=== PATIENT | female | born 1990 | race Caucasian/White ===

== ENCOUNTER 2017-11-03 09:19 | Emergency (ER) | payer OTHER ==
[~2017-11-03] VITALS: Ht 154.9 cm; Wt 82.0 kg
[2017-11-03 10:51] LABS: CLARITY URINE CLEAR (CLEAR); COLOR URINE YELLOW (YELLOW); KETONES URINE 3+ (NEGATIVE); LEUKOCYTE ESTERASE URINE 1+ (NEGATIVE); NITRITE URINE NEGATIVE (NEGATIVE); OCCULT BLOOD URINE NEGATIVE (NEGATIVE); PROTEIN URINE NEGATIVE (NEGATIVE); SPECIFIC GRAVITY URINE 1.024 (1.005-1.030)
[2017-11-03] MEDS ORDERED: MORPHINE SULFATE 4 MG/ML CPJ (NOT FOR IM USE) IV ONE (12:00)
[2017-11-03] MEDS ORDERED: ONDANSETRON HCL 4MG/2ML VIAL IV ONE (12:00)
[2017-11-03 12:27] LABS: HEMATOCRIT. 39.4 % (36.0-48.0); HEMOGLOBIN. 13.3 g/dL (12.0-16.0); MEAN CORPUSCULAR HEMOGLOBIN 29.4 pg (28.0-32.0); MEAN CORPUSCULAR VOLUME 86.9 fL (81.0-99.0); MEAN PLATELET VOLUME 10.6 fl (7.4-10.4); PLATELET 211 x1000/uL (130-400); RED BLOOD CELL COUNT 4.53 mill/uL (4.2-5.4); RED CELL DISTRIBUTION WIDTH 12.4 % (11.6-14.6)
[2017-11-03 12:32] LABS: CHLORIDE 104 mEq/L (98-107)
[2017-11-03 12:49] LABS: CARBON DIOXIDE 22 mEq/L (21-32)
[2017-11-03 12:56] LABS: B-HCG QUANTITATIVE 21090 mIU/mL (<3)
[2017-11-03 12:58] LABS: CLARITY URINE CLOUDY (CLEAR); COLOR URINE YELLOW (YELLOW); KETONES URINE 4+ (NEGATIVE); LEUKOCYTE ESTERASE URINE 2+ (NEGATIVE); NITRITE URINE NEGATIVE (NEGATIVE); OCCULT BLOOD URINE NEGATIVE (NEGATIVE); PROTEIN URINE NEGATIVE (NEGATIVE); SPECIFIC GRAVITY URINE 1.026 (1.005-1.030)
[2017-11-03 13:09] LABS: INR 1.1
[2017-11-03 13:17] LABS: PLATELET ESTIMATE NORMAL
[2017-11-03 13:54] LABS: *AMPHETAMINES SCREEN URINE NEGATIVE (NEGATIVE); *BARBITURATES SCREEN URINE NEGATIVE (NEGATIVE); *BENZODIAZEPINES SCREEN URINE NEGATIVE (NEGATIVE); *COCAINE SCREEN URINE NEGATIVE (NEGATIVE); METHADONE URINE SCREEN NEGATIVE (NEGATIVE); OPIATES URINE SCREEN NEGATIVE (NEGATIVE); PHENCYCLIDINE URINE SCREEN NEGATIVE (NEGATIVE)
[2017-11-03 13:57] LABS: CANNABINOID URINE SCREEN PRESUMTIVE POSITIVE (NEGATIVE)
[2017-11-03] MEDS ORDERED: RHO(D) IMMUNE GLOBULIN 300 MCG/SYR IM ONE (16:15)
[2017-11-03] MEDS ORDERED: CEFTRIAXONE 1 G PREMIX 50 ML IV ONE (16:15)
[2017-11-03 18:20] VITALS: BP 128/61
== END 2017-11-03 18:32 | disposition home or self-care (01) ==
LOC: ER 09:19
DX: O20.0 Threatened abortion (principal); O23.41 Unspecified infection of urinary tract in pregnancy, first trimester; N39.0 Urinary tract infection, site not specified; O98.811 Other maternal infectious and parasitic diseases complicating pregnancy, first trimester; B37.3 Candidiasis of vulva and vagina; O26.891 Other specified pregnancy related conditions, first trimester; D72.825 Bandemia; D72.829 Elevated white blood cell count, unspecified; J66.2 Cannabinosis; Z3A.01 Less than 8 weeks gestation of pregnancy; Z98.890 Other specified postprocedural states
CPT/HCPCS: 36415; 76801; 76817; 80053; 80305; 81001; 81025; 84702; 85025; 85610; 86850; 86900; 86901; 90384; 96365; 96372; 96375; 99285; J0696; J2270; J2405; Z7610

== ENCOUNTER 2023-04-18 15:25 | Emergency (ER) | payer OTHER ==
[~2023-04-18] VITALS: Ht 162.6 cm; Wt 90.0 kg
[2023-04-18 15:37] VITALS: BP 150/108; PULSE 108; RESP 18; O2SAT 98
[2023-04-18] MEDS ORDERED: ACETAMINOPHEN 325MG TABLET PO ONE (21:15)
[2023-04-18 21:29] VITALS: TEMP 98.6
[2023-04-18] MEDS ORDERED: ACET-2708 MT (22:19)
== END 2023-04-18 22:44 | disposition home or self-care (01) ==
LOC: ER 15:25
DX: M25.552 Pain in left hip (principal); M25.531 Pain in right wrist; R51.9 Headache, unspecified
CPT/HCPCS: 72170; 73120; 81025; 99284